=== PATIENT | female | born 1995 | race African-American/Black ===

== ENCOUNTER 2016-09-13 08:00 | Emergency (ER) | payer MEDICAID ==
[~2016-09-13 08:00] MED LIST: CEPH500C3 PO; CIPR500T4 PO; DIFL150T PO
[2016-09-13 08:03] VITALS: BP 136/73; PULSE 66; RESP 18; TEMP 98.5; O2SAT 99
[2016-09-13] MEDS ORDERED: BENADR (08:15)
--- NOTE | 2016-09-13 08:20 | PD ---
HPI Chief Complaint: Allergic/Adverse Reaction Time Seen by Provider: 08:20 Travel History International Travel<30 days: No Contact w/Intl Traveler<30days: No Traveled to known affect area: No History of Present Illness HPI 21-year-old female came to the emergency room with history of allergic reaction that has been going on for past 3 days. Patient has been taking Benadryl over- the-counter but says it hasn't gotten better. In fact it has got more widespread and this morning when she woke up she noticed that her upper lip was swollen. She decided to come to the emergency room. No respiratory or GI issues. She is otherwise a healthy person. Vital signs are stable. Patient does not appear to be in any significant distress. Patient has never had similar reaction in the past. She was started on Flagyl for some vaginal infection earlier last week but she stopped taking on Monday because she was feeling nauseous. [facility] Past Medical History Narrative Medical List of her past medical, surgical, social and family history is reviewed from the nursing note. Social History Alcohol Use: No Tobacco Use: No Allergies-Medications (Allergen,Severity, Reaction): Coded Allergies: Flagyl (Verified Allergy, Unknown, 09/13/16) Comments List of her allergies reviewed from the nursing note. Reported Meds & Prescriptions Reported Meds & Active Scripts Active Reported [benadr] Narrative Medication List of her home medications reviewed from the nursing note. Review of Systems Except as stated in HPI: all other systems reviewed are Neg Physical Exam Narrative GENERAL: Awake, alert, no obvious distress SKIN: Focused skin assessment warm/dry. Multiple generalized hives. HEAD: Atraumatic. Normocephalic. EYES: Pupils equal and round. No scleral icterus. No injection or drainage. ENT: No nasal bleeding or discharge. Mucous membranes pink and moist. Swollen upper lip. Tongue and airway is okay. NECK: Trachea midline. No JVD. CARDIOVASCULAR: Regular rate and rhythm. No murmur appreciated. RESPIRATORY: No accessory muscle use. Clear to auscultation. Breath sounds equal bilaterally. GASTROINTESTINAL: Abdomen soft, non-tender, nondistended. Hepatic and splenic margins not palpable. MUSCULOSKELETAL: No obvious deformities. No clubbing. No cyanosis. No edema. NEUROLOGICAL: Awake and alert. No obvious cranial nerve deficits. Motor grossly within normal limits. Normal speech. PSYCHIATRIC: Appropriate mood and affect; insight and judgment normal. Data Data Last Documented VS Vital Signs Date Time Temp Pulse Resp B/P Pulse Ox O2 Delivery O2 Flow Rate FiO2 09/13/16 08:26 94 18 100 Room Air 09/13/16 08:03 98.5 136/73 Orders Diphenhydramine (Benadryl) (09/13/16 08:30) Prednisone (Deltasone) (09/13/16 08:30) MDM Medical Decision Making Medical Screen Exam Complete: Yes Emergency Medical Condition: Yes Medical Record Reviewed: Yes Differential Diagnosis Allergic reaction Narrative Course 8:33 AM patient will be given by mouth Benadryl and prednisone. I'll watch her for another hour. If symptoms do not worsen she'll be discharged home on prescriptions. 9:24 AM symptoms have not worsened. They look a little bit better in fact. I' m ready to discharge her. I was told by the nurse that the patient had gone to [facility] on Monday where she got prescription for Benadryl as well as prednisone. However she did not fill the prescription for prednisone since she didn't have money. I have let the patient know that she needs to get the prednisone filled and take it for at least 3 days in order to feel better. She understands. I will not give her another prescription since she already has one. Procedures EKG Prior to Arrival: No Diagnosis Primary Impression: Allergic reaction Qualified Code: T78.40XA - Allergic reaction, initial encounter Referrals: Primary Care Physician Additional Instructions: Please take Benadryl that she already has 4 times a day for next 3 days. Make sure those pills at 25 mg each. Please fill the prescription of prednisone that was given to you at [facility] and take it for at least 3 days. Return to the ER if the condition worsens or any other new concerns. Otherwise follow-up with your primary care. Disposition: 01 DISCHARGE HOME Condition: Stable Bruna Rock MD Sep 13, 2016 08:20
[2016-09-13] MEDS ORDERED: predniSONE 20 MG TAB PO ONE (08:30)
[2016-09-13] MEDS ORDERED: diphenhydrAMINE HCL 50 MG CAP PO ONE (08:30)
== END 2016-09-13 10:08 | disposition home or self-care (01) ==
LOC: NEPE 08:00
DX: T78.40XA Allergy, unspecified, initial encounter (principal)
CPT/HCPCS: 99283; J7512; Q0163